=== PATIENT | female | born 1975 | race African-American/Black ===

== ENCOUNTER 2017-07-08 18:25 | Emergency (ER) | payer BC ==
[~2017-07-08] VITALS: Ht 165.1 cm; Wt 210.0 kg
[~2017-07-08 18:25] MED LIST: NO HOME MEDS; TOBRAMYCIN0.3 % OU
[2017-07-08] MEDS ORDERED: ULTRAM50 M1 PO (20:17)
[2017-07-08 20:30] VITALS: BP 118/70
== END 2017-07-08 20:30 | disposition home or self-care (01) | DRG 914 ==
LOC: ED 18:25
DX: S89.91XA Unspecified injury of right lower leg, initial encounter (principal); X58.XXXA Exposure to other specified factors, initial encounter

== ENCOUNTER 2019-01-03 08:24 | Emergency (ER) | payer BC ==
[~2019-01-03] VITALS: Ht 165.1 cm; Wt 97.0 kg
[~2019-01-03 08:24] MED LIST changes: +ULTRAM50 M1 PO
[2019-01-03] MEDS ORDERED: TORADOL PO (09:02)
[2019-01-03 09:14] VITALS: BP 141/65
== END 2019-01-03 09:14 | disposition home or self-care (01) | DRG 605 ==
LOC: ED 08:24
DX: S90.122A Contusion of left lesser toe(s) without damage to nail, initial encounter (principal); W22.03XA Walked into furniture, initial encounter; Y92.003 Bedroom of unspecified non-institutional (private) residence as the place of occurrence of the external cause

== ENCOUNTER 2024-08-06 08:43 | Day surgery (SDC) | payer BC ==
[~2024-08-06] VITALS: Ht 162.6 cm; Wt 98.0 kg
[~2024-08-06 08:43] MED LIST changes: +PERCOCET 5/325M1 TAB PO; +TORADOL PO
[2024-08-06] MEDS ORDERED: LACTATED RINGER'S 1,000 ML IV ONE (08:48)
[2024-08-06] MEDS ORDERED: FAMOTIDINE 10MG/ML 2ML SDV IV ONE (08:48)
[2024-08-06 10:38] VITALS: BP 141/71
[2024-08-06] MEDS ORDERED: PROPOFOL 200 MG/20 ML VIAL IV ONE (14:55)
[2024-08-06] MEDS ORDERED: LIDOCAINE HCL 2% 2ML SDV IV ONE (14:55)
[2024-08-06] MEDS ORDERED: GLYCOPYRROLATE 0.2 MG/ML IV ONE (14:55)
== END 2024-08-06 11:00 | disposition home or self-care (01) | DRG 951 ==
LOC: ENDO 08:43
PROVIDERS: ATTEND Surgery
PROC: 0DJD8ZZ Inspection of Lower Intestinal Tract, Via Natural or Artificial Opening Endoscopic (ICD-10-PCS; principal; 2024-08-06)
DX: Z12.11 Encounter for screening for malignant neoplasm of colon (principal); K64.8 Other hemorrhoids